=== PATIENT | female | born 1985 | race Caucasian/White ===

== ENCOUNTER 2017-02-19 20:21 | Emergency (ER) | payer SELFPAY ==
[2017-02-19 20:33] VITALS: TEMP 97.8
--- NOTE | 2017-02-19 20:35 | ED.PDOC ---
History of Present Illness - General Chief Complaint: Headache Time Seen by Provider: 02/19/17 20:29 Source: patient Exam Limitations: no limitations - History of Present Illness Initial Comments: PT C/O FRONTAL KAMINSIK ONSET TODAY FOLLOWED BY N/V AND SUBSEQUENTLY ANT CHEST PAIN. HAS HAD SX'S SIMILAR IN PAST BUT NOT IN QUITE SOME TIME. WAS DIAGNOSED WITH "MIGRAINE" Severity: moderate Improving Factors: nothing Worsening Factors: other - NOISE Associated Symptoms: chest pain Allergies/Adverse Reactions: Allergies NO KNOWN ALLERGY Allergy (Verified 01/10/14 23:09) Home Medications: Ambulatory Orders Ciprofloxacin [Cipro] 500 mg PO BID #14 tab 01/13/14 Magnesium Hydroxide [Milk Of Magnesia] 30 ml PO DAILY PRN #0 ud 01/13/14 Acetaminophen W/ Codeine [Tylenol W/ CODEINE #3] 1 ea PO Q6HR PRN #24 02/19/17 Amoxicillin & Pot Clavulanate [Augmentin] 1 tab PO BID #20 tab 02/19/17 Review of Systems - Review of Systems Constitutional: Denies: chills, fever EENTM: Denies: ear pain, nose pain, throat pain Respiratory: Denies: cough, short of breath Cardiology: States: chest pain. Denies: palpitations, syncope Gastrointestinal/Abdominal: States: nausea, vomiting. Denies: abdominal pain, diarrhea Genitourinary: States: no symptoms reported Musculoskeletal: Denies: back pain, neck pain Skin: States: no symptoms reported Neurological: States: headache. Denies: numbness, paresthesia, tingling Endocrine: States: no symptoms reported Hematologic/Lymphatic: States: no symptoms reported Past Medical History (General) - Patient Medical History Hx Stroke: No Hx Asthma: No Hx of COPD: No Hx Cardiac Disorders: No Hx Congestive Heart Failure: No Hx Pacemaker: No Hx Hypertension: No Hx Diabetes: No Hx MRSA: No - Social History Hx Tobacco Use: No Hx Alcohol Use: No Hx Substance Use: No Hx Physical Abuse: No Hx Emotional Abuse: No - Female History Hx Last Menstrual Period: 12/27/13 Patient : No Family Medical History - Family History Mother Family History: No Known Physical Exam - Physical Exam General Appearance: Anxious, No apparent distress, Obese Eye Exam: bilateral normal Ears, Nose, Throat: normal ENT inspection, normal pharynx, other - MARKED FRONTAL AND MAXILLARY SINUS TTP Neck: non-tender, full range of motion, supple, normal inspection Respiratory: lungs clear, normal breath sounds Cardiovascular/Chest: regular rate, rhythm, no murmur Gastrointestinal/Abdominal: normal bowel sounds, non tender, soft, no organomegaly Back Exam: normal inspection, no CVA tenderness Extremity: normal range of motion, normal inspection Neurologic: no motor/sensory deficits, alert, normal mood/affect, oriented x 3 Skin Exam: normal color, warm/dry Lymphatic: no adenopathy Progress - Progress Progress: 02/19/17 22:01 KAMINSKI, SOME BETTER, NAUSEA IMPROVED, STILL C/O SIGNIFICANT KAMINSKI, REMAINS NON FOCAL, NO MENINGISMUS WILL GET CT 02/19/17 23:05 CT NEG, CXR, MINIMAL RLL INFILTRATE - EKG/XRAY/CT XRAY: chest - NO ACUTE ABN, RADIOLOGY INTERP SMALL RLL INFILTRATE VS ATELECTASIS Departure - Departure Clinical Impression: Cephalgia Qualifiers: Headache type: unspecified Headache chronicity pattern: acute headache Intractability: not intractable Qualified Code(s): R51 - Headache Sinusitis Qualifiers: Sinusitis location: maxillary Chronicity: acute Time of Disposition: 23:18 Disposition: Discharge to Home or Self Care Condition: Good Instructions: Sinus Headache Prescriptions: Acetaminophen W/ Codeine [Tylenol W/ CODEINE #3] 1 ea PO Q6HR PRN #24 PRN Reason: Pain Amoxicillin & Pot Clavulanate [Augmentin] 1 tab PO BID #20 tab Home Medications: Ambulatory Orders Ciprofloxacin [Cipro] 500 mg PO BID #14 tab 01/13/14 Magnesium Hydroxide [Milk Of Magnesia] 30 ml PO DAILY PRN #0 ud 01/13/14 Acetaminophen W/ Codeine [Tylenol W/ CODEINE #3] 1 ea PO Q6HR PRN #24 02/19/17 Amoxicillin & Pot Clavulanate [Augmentin] 1 tab PO BID #20 tab 02/19/17
[2017-02-19] MEDS ORDERED: SODIUM CHLORIDE 0.9% 1000ML 1,000 ML IVS ONE (20:43)
[2017-02-19] MEDS ORDERED: PROMETHAZINE HCL INJ 12.5 MG in SODIUM CHLORIDE 0.9% 50ML 50 ML IVPB ONE (20:43)
[2017-02-19] MEDS ORDERED: SODIUM CHLORIDE 0.9% 50ML 50 ML ONE (20:51)
[2017-02-19] MEDS ORDERED: PROMETHAZINE HCL INJ 25 MG/ML VIAL ONE (20:51)
--- NOTE | 2017-02-19 21:22 | RAD ---
EXAM DESCRIPTION: Chest,1 View CLINICAL HISTORY: 31 years Female CHEST PAIN POST EMESIS COMPARISON: None. FINDINGS: Cardiac size is within normal limits. Left lung appears clear. Small amount of density in the medial right lung base which may reflect atelectasis. Developing infiltrate is not excluded. No pneumothorax or pleural fluid. IMPRESSION: Small amount of patchy density in the medial right lung base. Question developing infiltrate versus atelectasis Electronically signed by: Esthela Armstrong 02/19/2017 9:20 PM CDT
[2017-02-19 21:58] VITALS: O2SAT 100
--- NOTE | 2017-02-19 22:49 | CT ---
PROCEDURE: Head CLINICAL HISTORY: 31 years Female KAMINSKI COMPARISON: None. TECHNIQUE: Contiguous axial images obtained through the brain without IV contrast. This exam was performed according to our department optimization program which includes automated exposure control, adjustment of the mA and/or kv according to patient size and/or use of iterative reconstruction technique. FINDINGS: The ventricles and sulci are within normal limits for the patient's age. No midline shift or mass effect. No masses identified. No acute intracranial hemorrhage. No fluid or significant mucosal thickening in the visualized paranasal sinuses. No depressed calvarial fractures. IMPRESSION: No acute intracranial abnormality is identified. Electronically signed by: Esthela Armstrong 02/19/2017 10:47 PM CDT
[2017-02-19] MEDS ORDERED: KETOROLAC TROMETHAMINE INJ 30 MG/ML VIAL IV ONE (23:04)
[2017-02-19 23:12] VITALS: BP 122/78
== END 2017-02-19 23:36 | disposition home or self-care (01) ==
LOC: ER 20:21
DX: J01.00 Acute maxillary sinusitis, unspecified (principal); R51 Headache
CPT/HCPCS: 70450; 71010; 81025; A4216; J1885; J2550; J7030